=== PATIENT | female | born 1965 | race Caucasian/White ===

== ENCOUNTER → 2017-05-20 | Outpatient (CLI) | payer OTHER | LOC: COL.CARD 07:55 | DX: R00.2 Palpitations (principal) ==

== ENCOUNTER → 2018-02-27 | Outpatient (CLI) | payer OTHER | LOC: MC.RAD 14:08 | DX: Z12.31 Encounter for screening mammogram for malignant neoplasm of breast (principal); N63.10 Unspecified lump in the right breast, unspecified quadrant; N63.20 Unspecified lump in the left breast, unspecified quadrant ==

== ENCOUNTER → 2020-11-03 | Outpatient (CLI) | payer OTHER | LOC: MC.RAD 14:13 | DX: Z12.31 Encounter for screening mammogram for malignant neoplasm of breast (principal) ==